=== PATIENT | male | born 1945 | race Caucasian/White ===

== ENCOUNTER 2024-10-10 12:49 | Inpatient (IN) | payer MEDICARE, OTHER ==
[~2024-10-10] VITALS: Ht 177.8 cm; Wt 73.9 kg
[2024-10-10] MEDS ORDERED: predniSONE 20 MG TABLET ONE (13:28)
[2024-10-10] MEDS: predniSONE 20 MG TABLET PO ONE (13:33)
[2024-10-10] MEDS ORDERED: methylPREDNISolone SOD SUCC 125 MG/2ML VIAL ONE (13:34)
[2024-10-10] MEDS ORDERED: IPRATROPIUM NEB FS 0.5 MG/2.5 ML AMPUL.NEB ONE (13:35)
[2024-10-10] MEDS ORDERED: ALBUTEROL FS 2.5 MG/3 ML VIAL.NEB ONE (13:35)
[2024-10-10 13:38] VITALS: O2SAT 92
[2024-10-10] MEDS: ALBUTEROL FS 2.5 MG/3 ML VIAL.NEB NEB ONE (13:38)
[2024-10-10] MEDS: IPRATROPIUM NEB FS 0.5 MG/2.5 ML AMPUL.NEB NEB ONE (13:38)
[2024-10-10] MEDS: methylPREDNISolone SOD SUCC 125 MG/2ML VIAL IV ONE (13:41)
[2024-10-10 13:47] LABS: BASOPHILS % (AUTO) 0.4 % (0.0-2.0); EOSINOPHILS # (AUTO) 0.1 K/uL (0.0-0.7); EOSINOPHILS % (AUTO) 0.8 % (0.0-6.0); HEMATOCRIT 40 % (39-51); HEMOGLOBIN 13.4 g/dL (13.5-17.5); LYMPHOCYTES # (AUTO) 0.9 K/uL (0.8-4.8); LYMPHOCYTES % (AUTO) 13.8 % (20.0-44.0); MEAN CORPUSCULAR HEMOGLOBIN 32 PG (26.0-33.0); MEAN CORPUSCULAR HGB CONC 34 g/dl (31.0-36.0); MEAN CORPUSCULAR VOLUME 95 fL (80-96); MONOCYTES # (AUTO) 0.4 K/uL (0.1-1.30); MONOCYTES % (AUTO) 6.6 % (2.0-12.0); NEUTROPHILS # (AUTO) 5.1 K/uL (1.8-8.9); NEUTROPHILS % (AUTO) 78.4 % (43.0-81.0); PLATELET COUNT (AUTO) 196 K/uL (150-450); RED BLOOD CELL COUNT(AUTO) 4.17 MIL/uL (4.5-6.0); WHITE BLOOD COUNT (AUTO) 6.5 K/uL (4.3-11.0)
[2024-10-10 13:50] LABS: CALCIUM, SERUM 8.3 mg/dL (8.5-10.1); CREATININE 1.3 mg/dL (0.6-1.3)
[2024-10-10 13:54] VITALS: O2SAT 100
[2024-10-10] MEDS ORDERED: QUET25TA PO (15:02)
[2024-10-10] MEDS ORDERED: DONE5TAB34 PO (15:02)
[2024-10-10] MEDS ORDERED: ATOR20TA PO (15:02)
[2024-10-10] MEDS ORDERED: IPRA4AER IH (15:02)
[2024-10-10] MEDS ORDERED: TAMS-12 PO (15:02)
[2024-10-10] MEDS ORDERED: CITA40TA11 PO (15:02)
[2024-10-10] MEDS ORDERED: LISI-768 PO (15:02)
[2024-10-10 16:45] VITALS: BP 137/74; TEMP 98.6; O2SAT 95
[2024-10-10] MEDS ORDERED: ALBUTEROL HALF STRENGTH 1.25 MG/3 ML VIAL.NEB NEB PRN (17:30)
[2024-10-10] MEDS ORDERED: ACETAMINOPHEN 325 MG TABLET PO PRN (17:30)
[2024-10-10] MEDS ORDERED: IPRATROPIUM NEB FS 0.5 MG/2.5 ML AMPUL.NEB NEB PRN (17:30)
[2024-10-10] MEDS ORDERED: ONDANSETRON HCL/PF 4 MG/2 ML VIAL IVP PRN (17:30)
[2024-10-10] MEDS ORDERED: MAG HYDROX/AL HYDROX/SIMETH 30 ML UDC PO PRN (17:30)
[2024-10-10] MEDS: ENOXAPARIN SODIUM 40 MG/0.4 ML DISP.SYRIN SQ SCH (18:29)
[2024-10-10 20:00] VITALS: BP 144/74; TEMP 98.2; O2SAT 93
[2024-10-10] MEDS: methylPREDNISolone SOD SUCC 40 MG/ML VIAL IV SCH (20:07)
[2024-10-10 20:36] VITALS: BP 144/74; TEMP 98.2; O2SAT 93
[2024-10-11] VITALS (13 sets, daily range): BP systolic 104–155; BP diastolic 62–72; TEMP 97.5–98.4; O2SAT 94–100
[2024-10-11 07:12] LABS: BASOPHILS % (AUTO) 0.1 % (0.0-2.0); HEMATOCRIT 39 % (39-51); HEMOGLOBIN 13.1 g/dL (13.5-17.5); LYMPHOCYTES # (AUTO) 0.9 K/uL (0.8-4.8); LYMPHOCYTES % (AUTO) 8.8 % (20.0-44.0); MEAN CORPUSCULAR HEMOGLOBIN 31 PG (26.0-33.0); MEAN CORPUSCULAR HGB CONC 33 g/dl (31.0-36.0); MEAN CORPUSCULAR VOLUME 94 fL (80-96); MONOCYTES # (AUTO) 0.1 K/uL (0.1-1.30); MONOCYTES % (AUTO) 1.4 % (2.0-12.0); NEUTROPHILS # (AUTO) 9.1 K/uL (1.8-8.9); NEUTROPHILS % (AUTO) 89.7 % (43.0-81.0); PLATELET COUNT (AUTO) 211 K/uL (150-450); RED BLOOD CELL COUNT(AUTO) 4.16 MIL/uL (4.5-6.0); RED CELL DISTRIBUTION WIDTH 13.9 % (11.5-15.0); WHITE BLOOD COUNT (AUTO) 10.1 K/uL (4.3-11.0)
[2024-10-11 07:41] LABS: CALCIUM, SERUM 8.6 mg/dL (8.5-10.1); CREATININE 1.1 mg/dL (0.6-1.3); MAGNESIUM 2.3 mg/dL (1.8-2.4); PHOSPHORUS 1.7 mg/dL (2.5-4.9); POTASSIUM 4.8 mmol/L (3.5-5.1)
[2024-10-11] MEDS: ALBUTEROL HALF STRENGTH 1.25 MG/3 ML VIAL.NEB NEB SCH (09:00)
[2024-10-11] MEDS: IPRATROPIUM NEB FS 0.5 MG/2.5 ML AMPUL.NEB NEB SCH (09:00)
[2024-10-11] MEDS: K PHOS NEUTRAL 250 MG TABLET PO ONE (16:08)
[2024-10-12] VITALS (20 sets, daily range): BP systolic 116–153; BP diastolic 54–65; TEMP 97.6–98.2; O2SAT 91–100
[2024-10-12 07:08] LABS: BASOPHILS % (AUTO) 0.1 % (0.0-2.0); HEMATOCRIT 37 % (39-51); HEMOGLOBIN 12.2 g/dL (13.5-17.5); LYMPHOCYTES # (AUTO) 0.6 K/uL (0.8-4.8); LYMPHOCYTES % (AUTO) 5.8 % (20.0-44.0); MEAN CORPUSCULAR HEMOGLOBIN 31 PG (26.0-33.0); MEAN CORPUSCULAR HGB CONC 33 g/dl (31.0-36.0); MEAN CORPUSCULAR VOLUME 95 fL (80-96); MONOCYTES # (AUTO) 0.4 K/uL (0.1-1.30); NEUTROPHILS # (AUTO) 9.7 K/uL (1.8-8.9); NEUTROPHILS % (AUTO) 90.1 % (43.0-81.0); PLATELET COUNT (AUTO) 198 K/uL (150-450); RED BLOOD CELL COUNT(AUTO) 3.88 MIL/uL (4.5-6.0); RED CELL DISTRIBUTION WIDTH 14.3 % (11.5-15.0); WHITE BLOOD COUNT (AUTO) 10.8 K/uL (4.3-11.0)
[2024-10-12 07:51] LABS: CALCIUM, SERUM 8.4 mg/dL (8.5-10.1); CREATININE 1.1 mg/dL (0.6-1.3); MAGNESIUM 2.1 mg/dL (1.8-2.4); PHOSPHORUS 3.3 mg/dL (2.5-4.9); POTASSIUM 3.8 mmol/L (3.5-5.1)
[2024-10-13] VITALS (7 sets, daily range): BP systolic 132–144; BP diastolic 67–71; TEMP 97.5–98.1; O2SAT 95–96
[2024-10-13] MEDS: SULFAMEHOX/TRIMETH 200-40MG/ 5 ML UDC PO SCH (11:03)
[2024-10-13] MEDS ORDERED: SULF473O4 PO (11:41)
[2024-10-13] MEDS ORDERED: METH4TAB17 PO (11:41)
[2024-10-13] MEDS ORDERED: FLUT1BLS6 IH (11:45)
[2024-10-14] MEDS ORDERED: methylPREDNISolone SOD SUCC 40 MG/ML VIAL IV SCH (09:00)
== END 2024-10-13 18:43 | DRG 190 ==
LOC: ER 12:53 → TELE 16:32 → MED 10-13 11:45
PROVIDERS: ADMIT Nurse Practitioner Acute Care; ATTEND Nurse Practitioner Acute Care
DX: J44.1 Chronic obstructive pulmonary disease with (acute) exacerbation (principal); J96.01 Acute respiratory failure with hypoxia; Z66 Do not resuscitate; Z20.822 Contact with and (suspected) exposure to COVID-19; I10 Essential (primary) hypertension; Z79.51 Long term (current) use of inhaled steroids; Z87.891 Personal history of nicotine dependence; Z79.899 Other long term (current) drug therapy
CPT/HCPCS: 36415; 71045-TC; 80048-TC; 83735-TC; 83880; 84100-TC; 84484-TC; 85025-TC; 87081-TC; 94761-TC; 94799-TC; 97110-TC; 97116-TC; 97530-TC; G0378; J1650; J2919

== ENCOUNTER 2024-12-22 15:40 | Inpatient (IN) | payer MEDICARE, OTHER ==
[~2024-12-22] VITALS: Ht 175.3 cm; Wt 71.2 kg
[~2024-12-22 15:40] MED LIST: ATOR20TA PO; CITA40TA11 PO; DONE5TAB34 PO; FLUT1BLS6 IH; LISI-768 PO; METH4TAB17 PO; QUET25TA PO; SULF473O4 PO; TAMS-12 PO
[2024-12-22] MEDS ORDERED: IPRA4AER INH (16:03)
[2024-12-22] MEDS ORDERED: POLY17PO4 PO (16:03)
[2024-12-22] MEDS ORDERED: FLUT1BLS6 IH (16:03)
[2024-12-22 16:20] LABS: BASOPHILS % (AUTO) 0.4 % (0.0-2.0); EOSINOPHILS # (AUTO) 0.1 K/uL (0.0-0.7); EOSINOPHILS % (AUTO) 1.1 % (0.0-6.0); HEMATOCRIT 41 % (39-51); HEMOGLOBIN 13.3 g/dL (13.5-17.5); LYMPHOCYTES # (AUTO) 0.7 K/uL (0.8-4.8); LYMPHOCYTES % (AUTO) 8.5 % (20.0-44.0); MEAN CORPUSCULAR HEMOGLOBIN 31 PG (26.0-33.0); MEAN CORPUSCULAR HGB CONC 32 g/dl (31.0-36.0); MEAN CORPUSCULAR VOLUME 95 fL (80-96); MONOCYTES # (AUTO) 0.5 K/uL (0.1-1.30); MONOCYTES % (AUTO) 5.7 % (2.0-12.0); NEUTROPHILS # (AUTO) 6.8 K/uL (1.8-8.9); NEUTROPHILS % (AUTO) 84.3 % (43.0-81.0); PLATELET COUNT (AUTO) 251 K/uL (150-450); RED BLOOD CELL COUNT(AUTO) 4.34 MIL/uL (4.5-6.0); RED CELL DISTRIBUTION WIDTH 14.3 % (11.5-15.0); WHITE BLOOD COUNT (AUTO) 8.1 K/uL (4.3-11.0)
[2024-12-22 16:32] LABS: CALCIUM, SERUM 8.7 mg/dL (8.5-10.1); CARBON DIOXIDE 27 mmol/L (21-32); CHLORIDE 103 mmol/L (98-107); CREATININE 1.3 mg/dL (0.6-1.3); GLUCOSE 155 mg/dL (74-106); POTASSIUM 3.8 mmol/L (3.5-5.1); SODIUM SERUM 136 mmol/L (136-145); UREA NITROGEN, BLOOD 22 mg/dL (7-18)
[2024-12-22] MEDS ORDERED: ONDANSETRON HCL/PF 4 MG/2 ML VIAL IVP PRN (18:00)
[2024-12-22] MEDS ORDERED: Z GUARD REMEDY 4 OZ OINT TP PRN (18:00)
[2024-12-22] MEDS ORDERED: ACETAMINOPHEN 325 MG TABLET PO PRN (18:00)
[2024-12-22] MEDS: ENOXAPARIN SODIUM 40 MG/0.4 ML DISP.SYRIN SQ SCH (18:26)
[2024-12-22] MEDS: predniSONE 20 MG TABLET PO SCH (18:26)
[2024-12-22 20:00] VITALS: BP 130/67; TEMP 98.1; O2SAT 94
[2024-12-22] MEDS: ALBUTEROL FS 2.5 MG/3 ML VIAL.NEB NEB SCH (20:14)
[2024-12-22] MEDS: IPRATROPIUM NEB FS 0.5 MG/2.5 ML AMPUL.NEB NEB SCH (20:14)
[2024-12-22 20:16] VITALS: O2SAT 94
[2024-12-22 20:26] VITALS: O2SAT 100
[2024-12-22] MEDS: DONEPEZIL 5 MG TABLET PO SCH (21:30)
[2024-12-22] MEDS: DOXYCYCLINE HYCLATE (100 MG) 100 MG TABLET PO SCH (21:30)
[2024-12-22] MEDS: TAMSULOSIN 0.4 MG CAP.SR.24H PO SCH (21:30)
[2024-12-22] MEDS: ATORVASTATIN 10 MG TABLET PO SCH (21:31)
[2024-12-23 04:00] VITALS: BP 129/69; TEMP 98.4; O2SAT 94
[2024-12-23 06:44] LABS: BASOPHILS % (AUTO) 0.1 % (0.0-2.0); HEMATOCRIT 39 % (39-51); HEMOGLOBIN 12.7 g/dL (13.5-17.5); LYMPHOCYTES # (AUTO) 0.6 K/uL (0.8-4.8); MEAN CORPUSCULAR HEMOGLOBIN 31 PG (26.0-33.0); MEAN CORPUSCULAR HGB CONC 33 g/dl (31.0-36.0); MEAN CORPUSCULAR VOLUME 96 fL (80-96); MONOCYTES # (AUTO) 0.3 K/uL (0.1-1.30); MONOCYTES % (AUTO) 3.4 % (2.0-12.0); NEUTROPHILS # (AUTO) 6.6 K/uL (1.8-8.9); NEUTROPHILS % (AUTO) 88.5 % (43.0-81.0); PLATELET COUNT (AUTO) 250 K/uL (150-450); RED BLOOD CELL COUNT(AUTO) 4.05 MIL/uL (4.5-6.0); WHITE BLOOD COUNT (AUTO) 7.5 K/uL (4.3-11.0)
[2024-12-23 07:00] VITALS: O2SAT 97
[2024-12-23 07:54] LABS: CALCIUM, SERUM 8.5 mg/dL (8.5-10.1); MAGNESIUM 2.2 mg/dL (1.8-2.4); PHOSPHORUS 3.3 mg/dL (2.5-4.9); POTASSIUM 4.3 mmol/L (3.5-5.1)
[2024-12-23] MEDS: CITALOPRAM HYDROBROMIDE 20 MG TABLET PO SCH (08:17)
[2024-12-23] MEDS: LISINOPRIL (5MG) 5 MG TABLET PO SCH (08:18)
[2024-12-23] MEDS: QUETIAPINE FUMARATE 25 MG TABLET PO SCH (08:18)
[2024-12-23] MEDS: POLYETHYLENE GLYCOL 3350 17 GM POWD.PACK PO SCH (08:19)
[2024-12-23] MEDS: PANTOPRAZOLE 40 MG TABLET.DR PO SCH (08:19)
[2024-12-23] MEDS ORDERED: Medication Not On Formulary EA (Fluticasone/Umeclidin/Vilanter (Trelegy Ellipta 100-62.5 IH SCH (09:00)
[2024-12-23] MEDS ORDERED: CIPROFLOXACIN HCL 250 MG TABLET PO SCH (10:30)
[2024-12-23 12:00] VITALS: BP 129/69; TEMP 98.4; O2SAT 94
[2024-12-23] MEDS: CIPROFLOXACIN HCL 500 MG TABLET PO SCH (12:07)
[2024-12-23 13:46] LABS: APPEARANCE,URINE TURBID (CLEAR); BILIRUBIN,URINE 1+ (NEGATIVE); BLOOD, URINE NEGATIVE Ery/uL (NEGATIVE); COLOR,URINE YELLOW (YELLOW); KETONES,URINE 1+ mg/dL (NEGATIVE); LEUKOCYTE ESTERASE ,URINE NEGATIVE (NEGATIVE); NITRITE, URINE NEGATIVE (NEGATIVE); PROTEIN,URINE 1+ mg/dl (NEGATIVE); UGLUCOSE NEGATIVE (NEGATIVE)
[2024-12-23 13:59] LABS: ADD URINE CULTURE NO; BACTERIA,URINE Rare /HPF (None Seen); RBC,URINE 0-2 /HPF (0-2); SQUAMOUS EPITHELIAL CELL,UR None Seen /HPF (None Seen); WBC,URINE 0-2 /HPF (0-3)
[2024-12-23 14:00] LABS: URINE AMORPHOUS URATE Moderate /HPF (None Seen)
[2024-12-23 19:41] VITALS: O2SAT 94
[2024-12-23 19:51] VITALS: O2SAT 100
[2024-12-23 20:00] VITALS: BP 105/61; TEMP 98.1; O2SAT 94
[2024-12-24] VITALS (11 sets, daily range): BP systolic 113–125; BP diastolic 51–68; TEMP 97.9–98.6; O2SAT 94–100
[2024-12-24 06:55] LABS: BASOPHILS % (AUTO) 0.4 % (0.0-2.0); EOSINOPHILS # (AUTO) 0.1 K/uL (0.0-0.7); EOSINOPHILS % (AUTO) 0.8 % (0.0-6.0); HEMATOCRIT 38 % (39-51); HEMOGLOBIN 12.4 g/dL (13.5-17.5); LYMPHOCYTES # (AUTO) 1.1 K/uL (0.8-4.8); LYMPHOCYTES % (AUTO) 12.3 % (20.0-44.0); MEAN CORPUSCULAR HEMOGLOBIN 31 PG (26.0-33.0); MEAN CORPUSCULAR HGB CONC 33 g/dl (31.0-36.0); MEAN CORPUSCULAR VOLUME 95 fL (80-96); MONOCYTES # (AUTO) 0.7 K/uL (0.1-1.30); MONOCYTES % (AUTO) 7.9 % (2.0-12.0); NEUTROPHILS # (AUTO) 7.3 K/uL (1.8-8.9); NEUTROPHILS % (AUTO) 78.6 % (43.0-81.0); PLATELET COUNT (AUTO) 201 K/uL (150-450); RED BLOOD CELL COUNT(AUTO) 3.98 MIL/uL (4.5-6.0); RED CELL DISTRIBUTION WIDTH 13.9 % (11.5-15.0); WHITE BLOOD COUNT (AUTO) 9.2 K/uL (4.3-11.0)
[2024-12-24 07:03] LABS: CALCIUM, SERUM 8.2 mg/dL (8.5-10.1); CREATININE 1.2 mg/dL (0.6-1.3); MAGNESIUM 1.9 mg/dL (1.8-2.4); PHOSPHORUS 2.4 mg/dL (2.5-4.9); POTASSIUM 3.6 mmol/L (3.5-5.1)
[2024-12-24] MEDS: predniSONE 20 MG TABLET PO SCH (08:59)
[2024-12-24] MEDS: POTASSIUM PHOSPHATE MM 7.5 MMOL in IV NS 0.9% 100 ML IV SCH (10:44)
[2024-12-24] MEDS: MAGNESIUM HYDROXIDE 30 ML UDC PO PRN (18:46)
[2024-12-24] MEDS: MIRTAZAPINE 15 MG TABLET PO SCH (21:26)
[2024-12-24] MEDS: QUETIAPINE FUMARATE 25 MG TABLET PO SCH (21:26)
[2024-12-24] MEDS: TAMSULOSIN 0.4 MG CAP.SR.24H PO SCH (21:26)
[2024-12-25 04:00] VITALS: BP 127/50; TEMP 97.3; O2SAT 93
[2024-12-25 07:25] LABS: BASOPHILS % (AUTO) 0.5 % (0.0-2.0); EOSINOPHILS # (AUTO) 0.1 K/uL (0.0-0.7); EOSINOPHILS % (AUTO) 1.4 % (0.0-6.0); HEMATOCRIT 36 % (39-51); HEMOGLOBIN 11.7 g/dL (13.5-17.5); LYMPHOCYTES # (AUTO) 1.5 K/uL (0.8-4.8); LYMPHOCYTES % (AUTO) 16.4 % (20.0-44.0); MEAN CORPUSCULAR HEMOGLOBIN 31 PG (26.0-33.0); MEAN CORPUSCULAR HGB CONC 33 g/dl (31.0-36.0); MEAN CORPUSCULAR VOLUME 95 fL (80-96); MONOCYTES # (AUTO) 0.7 K/uL (0.1-1.30); MONOCYTES % (AUTO) 7.3 % (2.0-12.0); NEUTROPHILS # (AUTO) 6.9 K/uL (1.8-8.9); NEUTROPHILS % (AUTO) 74.4 % (43.0-81.0); PLATELET COUNT (AUTO) 213 K/uL (150-450); RED BLOOD CELL COUNT(AUTO) 3.78 MIL/uL (4.5-6.0); RED CELL DISTRIBUTION WIDTH 14.2 % (11.5-15.0); WHITE BLOOD COUNT (AUTO) 9.2 K/uL (4.3-11.0)
[2024-12-25 07:41] VITALS: O2SAT 96
[2024-12-25 07:56] VITALS: O2SAT 96
[2024-12-25 07:56] LABS: CALCIUM, SERUM 8.5 mg/dL (8.5-10.1); CREATININE 1.1 mg/dL (0.6-1.3); MAGNESIUM 1.9 mg/dL (1.8-2.4); PHOSPHORUS 2.7 mg/dL (2.5-4.9); POTASSIUM 3.5 mmol/L (3.5-5.1)
[2024-12-25 08:00] VITALS: BP 137/69; TEMP 97.3; O2SAT 97
[2024-12-25] MEDS: FINASTERIDE (5 MG) 5 MG TABLET PO SCH (09:15)
[2024-12-25] MEDS: predniSONE 20 MG TABLET PO SCH (09:15)
[2024-12-25] MEDS: CITALOPRAM HYDROBROMIDE 20 MG TABLET PO SCH (09:15)
[2024-12-25] MEDS ORDERED: CITA20TA16 PO (11:25)
[2024-12-25] MEDS ORDERED: CIPR-262 PO (11:25)
[2024-12-25] MEDS ORDERED: QUET25TA PO (11:25)
[2024-12-25] MEDS ORDERED: MIRT-121 PO (11:25)
[2024-12-25] MEDS ORDERED: TAMS-12 PO (11:25)
[2024-12-25] MEDS ORDERED: FINA5TAB3 PO (11:25)
[2024-12-25 12:00] VITALS: BP 137/69; TEMP 97.3; O2SAT 97
[2024-12-25 13:35] VITALS: O2SAT 95
== END 2024-12-25 14:26 | disposition home health service (06) | DRG 191 ==
LOC: ER 15:43 → MEDSG1 17:28
PROVIDERS: ADMIT Nurse Practitioner Family; ATTEND Nurse Practitioner Family
PROC: 0T9B70Z Drainage of Bladder with Drainage Device, Via Natural or Artificial Opening (ICD-10-PCS; principal; 2024-12-23)
DX: J44.1 Chronic obstructive pulmonary disease with (acute) exacerbation (principal); N39.0 Urinary tract infection, site not specified; Z87.891 Personal history of nicotine dependence; F32.9 Major depressive disorder, single episode, unspecified; N40.1 Benign prostatic hyperplasia with lower urinary tract symptoms; R33.8 Other retention of urine; Z79.899 Other long term (current) drug therapy; E78.5 Hyperlipidemia, unspecified; F41.9 Anxiety disorder, unspecified; M15.9 Polyosteoarthritis, unspecified; I10 Essential (primary) hypertension; F39 Unspecified mood [affective] disorder; D64.9 Anemia, unspecified; R63.0 Anorexia; R73.9 Hyperglycemia, unspecified; R79.89 Other specified abnormal findings of blood chemistry
CPT/HCPCS: 36415; 71045-TC; 80048-TC; 80061-TC; 81001; 83735-TC; 84100-TC; 84484-TC; 85025-TC; 87081-TC; 87086-TC; 92526; 92611-TC; 94760-TC; 94799-TC; 97110-TC; 97112-TC; 97116-TC; 97530-TC; 97535-TC; A4223; G0378; J1650; J3490; J7030

== ENCOUNTER 2025-01-03 22:48 | Emergency (ER) | payer MEDICARE, OTHER ==
[~2025-01-03] VITALS: Ht 175.3 cm; Wt 68.0 kg
[~2025-01-03 22:48] MED LIST changes: +CIPR-262 PO; +CITA20TA16 PO; -CITA40TA11 PO; +FINA5TAB3 PO; +IPRA4AER INH; -METH4TAB17 PO; +MIRT-121 PO; +POLY17PO4 PO; -SULF473O4 PO
[2025-01-04] MEDS ORDERED: ACETAMINOPHEN 325 MG TABLET ONE (01:22)
[2025-01-04] MEDS: ACETAMINOPHEN 325 MG TABLET PO ONE (01:29)
[2025-01-04 02:42] LABS: APPEARANCE,URINE CLOUDY (CLEAR); BILIRUBIN,URINE 1+ (NEGATIVE); BLOOD, URINE 3+ Ery/uL (NEGATIVE); COLOR,URINE YELLOW (YELLOW); KETONES,URINE 1+ mg/dL (NEGATIVE); LEUKOCYTE ESTERASE ,URINE NEGATIVE (NEGATIVE); NITRITE, URINE NEGATIVE (NEGATIVE); PROTEIN,URINE 2+ mg/dl (NEGATIVE); UGLUCOSE NEGATIVE (NEGATIVE)
[2025-01-04 03:01] LABS: RBC,URINE TOO NUMEROUS TO COUN /HPF (0-2)
[2025-01-04 03:03] LABS: ADD URINE CULTURE YES; BACTERIA,URINE Few /HPF (None Seen); MUCUS,URINE Few /LPF (None Seen); SQUAMOUS EPITHELIAL CELL,UR Few /HPF (None Seen); YEAST,URINE Few /HPF (None Seen)
[2025-01-04] MEDS ORDERED: LIDOCAINE 2% JEL UROJET 10 ML MM ONE (04:07)
[2025-01-04] MEDS ORDERED: KETOROLAC TROMETHAMINE 15 MG/ML VIAL ONE (05:18)
[2025-01-04] MEDS: KETOROLAC TROMETHAMINE 15 MG/ML VIAL IV ONE (05:20)
[2025-01-04 06:50] VITALS: BP 120/70; TEMP 98; O2SAT 99
== END 2025-01-04 06:51 ==
LOC: ER 23:05
DX: T83.84XA Pain due to genitourinary prosthetic devices, implants and grafts, initial encounter (principal); E11.9 Type 2 diabetes mellitus without complications; E78.5 Hyperlipidemia, unspecified; F32.A Depression, unspecified; F41.9 Anxiety disorder, unspecified; I10 Essential (primary) hypertension; J44.89 Other specified chronic obstructive pulmonary disease; N40.1 Benign prostatic hyperplasia with lower urinary tract symptoms; Z79.899 Other long term (current) drug therapy; Z86.79 Personal history of other diseases of the circulatory system; Y84.6 Urinary catheterization as the cause of abnormal reaction of the patient, or of later complication, without mention of misadventure at the time of the procedure; Y92.89 Other specified places as the place of occurrence of the external cause
CPT/HCPCS: 99283; 96374; 87086; 81001; J1885; J3490

== ENCOUNTER 2025-01-11 20:57 | Emergency (ER) | payer MEDICARE, OTHER ==
[~2025-01-11] VITALS: Ht 167.6 cm; Wt 63.5 kg
[2025-01-11 21:52] VITALS: TEMP 98
[2025-01-11] MEDS: IV NS 0.9% 500 ML BAG IV ONE (22:30)
[2025-01-11 22:51] LABS: PLATELET COUNT (AUTO) 273 K/uL (150-450); RED BLOOD CELL COUNT(AUTO) 4.29 MIL/uL (4.5-6.0); RED CELL DISTRIBUTION WIDTH 14.1 % (11.5-15.0); WHITE BLOOD COUNT (AUTO) 8.7 K/uL (4.3-11.0)
[2025-01-11 22:57] LABS: CALCIUM, SERUM 9.0 mg/dL (8.5-10.1); CREATININE 1.1 mg/dL (0.6-1.3); SODIUM SERUM 135.0 mmol/L (136-145); UREA NITROGEN, BLOOD 19.0 mg/dL (7-18)
[2025-01-11 23:03] LABS: LACTIC ACID 1.3 mmol/L (0.4-2.0)
[2025-01-11 23:10] LABS: ASPARTATE AMINOTRANSFERASE 67.0 U/L (15-37); TOTAL PROTEIN, SERUM 7.7 g/dL (6.4-8.2)
[2025-01-12 00:11] LABS: APPEARANCE,URINE SLIGHTLY CLOUDY (CLEAR); BLOOD, URINE 3+ Ery/uL (NEGATIVE); LEUKOCYTE ESTERASE ,URINE TRACE (NEGATIVE); NITRITE, URINE NEGATIVE (NEGATIVE); UGLUCOSE NEGATIVE (NEGATIVE)
[2025-01-12 00:13] LABS: ADD URINE CULTURE NO; SQUAMOUS EPITHELIAL CELL,UR Rare /HPF (None Seen)
[2025-01-12] MEDS ORDERED: CEPH500C2 PO (01:19)
[2025-01-12] MEDS ORDERED: CLOT15CR35 TP (01:19)
[2025-01-12] MEDS ORDERED: CEFTRIAXONE 1GM BAG (ER ONLY) 50 ML IV ONE (01:29)
[2025-01-12] MEDS: CEFTRIAXONE 1GM BAG (ER ONLY) 1 GM/50 ML PIGGYBACK IV ONE (01:50)
[2025-01-12 02:07] VITALS: BP 115/64; O2SAT 96
== END 2025-01-12 02:23 | disposition home or self-care (01) ==
LOC: ER 21:03
DX: T83.098A Other mechanical complication of other urinary catheter, initial encounter (principal); F32.A Depression, unspecified; F41.9 Anxiety disorder, unspecified; I10 Essential (primary) hypertension; J44.89 Other specified chronic obstructive pulmonary disease; N39.0 Urinary tract infection, site not specified; R07.9 Chest pain, unspecified; Z79.899 Other long term (current) drug therapy; Z86.79 Personal history of other diseases of the circulatory system; Y84.6 Urinary catheterization as the cause of abnormal reaction of the patient, or of later complication, without mention of misadventure at the time of the procedure; Y92.89 Other specified places as the place of occurrence of the external cause
CPT/HCPCS: 99285; 71045; 51702; 84145; 85025; 80048; 87040 ×2; 83605; 80076; 81001; 36415; 93005; 96365; J7040; J0696; 87086-TC

== ENCOUNTER 2025-01-28 14:38 | Inpatient (IN) | payer MEDICARE, OTHER ==
[~2025-01-28] VITALS: Ht 165.1 cm; Wt 63.7 kg
[~2025-01-28 14:38] MED LIST changes: +CEPH500C2 PO; +CLOT15CR35 TP
[2025-01-28 15:16] LABS: PLATELET COUNT (AUTO) 254 K/uL (150-450); RED BLOOD CELL COUNT(AUTO) 3.82 MIL/uL (4.5-6.0); RED CELL DISTRIBUTION WIDTH 14.2 % (11.5-15.0); WHITE BLOOD COUNT (AUTO) 10.2 K/uL (4.3-11.0)
[2025-01-28 15:24] LABS: CALCIUM, SERUM 8.4 mg/dL (8.5-10.1); CREATININE 0.8 mg/dL (0.6-1.3); SODIUM SERUM 140.0 mmol/L (136-145); UREA NITROGEN, BLOOD 14.0 mg/dL (7-18)
[2025-01-28 15:30] LABS: ASPARTATE AMINOTRANSFERASE 73.0 U/L (15-37); TOTAL PROTEIN, SERUM 6.9 g/dL (6.4-8.2)
[2025-01-28 15:32] LABS: INR 1.09 (0.91-1.10)
[2025-01-28] MEDS ORDERED: MORPHINE SULFATE INJ 2 MG/ML DISP.SYRIN ONE (15:41)
[2025-01-28] MEDS: MORPHINE SULFATE INJ 2 MG/ML DISP.SYRIN IV ONE (15:52)
[2025-01-28] MEDS: IV NS 0.9% 1,000 ML BAG IV ONE (16:00)
[2025-01-28] MEDS ORDERED: ONDANSETRON HCL/PF 4 MG/2 ML VIAL ONE (16:01)
[2025-01-28] MEDS ORDERED: FAMOTIDINE/PF INJ 20 MG/2 ML VIAL IV ONE (16:01)
[2025-01-28] MEDS ORDERED: SILO8CAP2 PO (16:03)
[2025-01-28] MEDS: ONDANSETRON HCL/PF 4 MG/2 ML VIAL IVP ONE (16:05)
[2025-01-28] MEDS: FAMOTIDINE/PF INJ 20 MG/2 ML VIAL IV ONE (16:05)
[2025-01-28] MEDS ORDERED: ACETAMINOPHEN 325 MG TABLET PO PRN (18:00)
[2025-01-28] MEDS ORDERED: Z GUARD REMEDY 4 OZ OINT TP PRN (18:00)
[2025-01-28] MEDS ORDERED: ONDANSETRON HCL/PF 4 MG/2 ML VIAL IVP PRN (18:00)
[2025-01-28] MEDS ORDERED: MAGNESIUM HYDROXIDE 30 ML UDC PO PRN (18:00)
[2025-01-28] MEDS: ENOXAPARIN SODIUM 40 MG/0.4 ML DISP.SYRIN SQ SCH (18:39)
[2025-01-28] MEDS: DICYCLOMINE HCL 10 MG CAPSULE PO SCH (18:40)
[2025-01-28 18:51] VITALS: BP 137/64; TEMP 97.5; O2SAT 95
[2025-01-28 20:00] VITALS: BP 147/58; TEMP 98.1; O2SAT 92
[2025-01-28] MEDS: IPRATROPIUM NEB FS 0.5 MG/2.5 ML AMPUL.NEB NEB SCH (23:23)
[2025-01-28] MEDS: ALBUTEROL FS 2.5 MG/3 ML VIAL.NEB NEB SCH (23:23)
[2025-01-29] VITALS (11 sets, daily range): BP systolic 120–134; BP diastolic 56–69; TEMP 97.7–98.1; O2SAT 62–96
[2025-01-29 07:10] LABS: PLATELET COUNT (AUTO) 268 K/uL (150-450); RED BLOOD CELL COUNT(AUTO) 3.50 MIL/uL (4.5-6.0); RED CELL DISTRIBUTION WIDTH 14.2 % (11.5-15.0); WHITE BLOOD COUNT (AUTO) 9.7 K/uL (4.3-11.0)
[2025-01-29 07:31] LABS: CALCIUM, SERUM 8.4 mg/dL (8.5-10.1); CREATININE 1.0 mg/dL (0.6-1.3); PHOSPHORUS 2.9 mg/dL (2.5-4.9); SODIUM SERUM 140.0 mmol/L (136-145); UREA NITROGEN, BLOOD 15.0 mg/dL (7-18)
[2025-01-29] MEDS: PANTOPRAZOLE 40 MG TABLET.DR PO SCH (08:25)
[2025-01-29 11:25] LABS: IRON, SERUM 30.0 ug/dl (50-175)
[2025-01-29] MEDS: HYDROCODONE/APAP 5/325MG TABLET PO PRN (17:44)
[2025-01-30] VITALS (10 sets, daily range): BP systolic 123–165; BP diastolic 69–83; TEMP 97.9–98.1; O2SAT 92–100
[2025-01-30 05:08] LABS: AFP, TUMOR MARKER <1.8 ng/mL (0.0-8.4); CANCER AG, 125 563.0 U/mL (Not Estab.); CARBOHYDRATE AG 19-9 264 U/mL (0-35); CARCINOEMBRYONIC ANTIGEN (CEA) 4.3 ng/mL (0.0-4.7)
[2025-01-30 07:09] LABS: PLATELET COUNT (AUTO) 230 K/uL (150-450); RED BLOOD CELL COUNT(AUTO) 3.26 MIL/uL (4.5-6.0); RED CELL DISTRIBUTION WIDTH 14.0 % (11.5-15.0); WHITE BLOOD COUNT (AUTO) 9.6 K/uL (4.3-11.0)
[2025-01-30 07:42] LABS: CALCIUM, SERUM 8.7 mg/dL (8.5-10.1); CREATININE 0.9 mg/dL (0.6-1.3); PHOSPHORUS 3.1 mg/dL (2.5-4.9); SODIUM SERUM 141.0 mmol/L (136-145); UREA NITROGEN, BLOOD 13.0 mg/dL (7-18)
[2025-01-30 08:07] LABS: FOLIC ACID 4.4 ng/mL (>3.0); FREE KAPPA LT CHAINS SERUM 64.9 mg/L (3.3-19.4); FREE LAMBDA LT CHAIN SERUM 56.5 mg/L (5.7-26.3); IMMUNOGLOBULIN A, SERUM 333 mg/dL (61-437); IMMUNOGLOBULIN M, SERUM 33 mg/dL (15-143); KAPPA/LAMBDA RATIO SERUM 1.15 (0.26-1.65)
[2025-01-30 08:17] LABS: FIBRINOGEN ACTIVITY 268 Mg/dL (213-485); INR 1.08 (0.91-1.10)
[2025-01-30] MEDS ORDERED: IV NS 0.9% 250 ML IV ONE (09:52)
[2025-01-30] MEDS ORDERED: CT SWABBABLE VALVE TRANS SET 1 EA INFUS.SET MC ONE (09:52)
[2025-01-30] MEDS ORDERED: IOHEXOL-300 100 ML VIAL IV ONE (09:52)
[2025-01-30] MEDS ORDERED: DICY10CA37 PO (13:03)
[2025-01-30] MEDS: ATORVASTATIN 10 MG TABLET PO SCH (21:14)
[2025-01-30] MEDS: DONEPEZIL 5 MG TABLET PO SCH (21:14)
[2025-01-31 07:29] VITALS: O2SAT 94
[2025-01-31 07:45] VITALS: O2SAT 98
[2025-01-31 08:00] VITALS: BP 154/79; TEMP 97.7; O2SAT 94
[2025-01-31] MEDS: FINASTERIDE (5 MG) 5 MG TABLET PO SCH (08:36)
[2025-01-31] MEDS: CITALOPRAM HYDROBROMIDE 20 MG TABLET PO SCH (08:36)
[2025-01-31] MEDS: POLYETHYLENE GLYCOL 3350 17 GM POWD.PACK PO SCH (08:40)
[2025-02-03 09:07] LABS: *SPE A/G RATIO 1.0 (0.7-1.7); *SPE ALBUMIN 2.7 g/dL (2.9-4.4); *SPE ALPHA-1-GLOBULIN 0.4 g/dL (0.0-0.4); *SPE ALPHA-2-GLOBULIN 0.7 g/dL (0.4-1.0); *SPE BETA GLOBULIN 1.0 g/dL (0.7-1.3); *SPE GLOBULIN, TOTAL 2.6 g/dL (2.2-3.9); *SPE M-SPIKE Not Observed g/dL (Not Observed); *SPE PROTEIN TOTAL 5.3 g/dL (6.0-8.5); *SPEGAMMA GLOBULIN 0.6 g/dL (0.4-1.8)
== END 2025-01-31 12:00 | DRG 375 ==
LOC: ER 14:40 → MED 17:50
PROVIDERS: ADMIT Nurse Practitioner Family; ATTEND Nurse Practitioner Family
DX: C17.9 Malignant neoplasm of small intestine, unspecified (principal); C78.7 Secondary malignant neoplasm of liver and intrahepatic bile duct; E44.1 Mild protein-calorie malnutrition; J44.1 Chronic obstructive pulmonary disease with (acute) exacerbation; E88.09 Other disorders of plasma-protein metabolism, not elsewhere classified; I10 Essential (primary) hypertension; N40.0 Benign prostatic hyperplasia without lower urinary tract symptoms; F32.A Depression, unspecified; F41.9 Anxiety disorder, unspecified; Z79.51 Long term (current) use of inhaled steroids; Z79.899 Other long term (current) drug therapy; F10.11 Alcohol abuse, in remission; D64.9 Anemia, unspecified; Z87.891 Personal history of nicotine dependence; R59.0 Localized enlarged lymph nodes
CPT/HCPCS: 36415; 71045-TC; 71260-TC; 80048-TC; 80076-TC; 82105; 82378; 82607-TC; 82728-TC; 82784; 83540-TC; 83615-TC; 83690-TC; 83735-TC; 84100-TC; 84155; 84165; 84443-TC; 85025-TC; 85396; 85730-TC; 86301; 86304; 86334; 86850-TC; 87081-TC; 94799-TC; G0378; J1308; J1650; J2270; J2405; J7050; Q9967